=== PATIENT | male | born 1965 | race African-American/Black ===

== ENCOUNTER 2018-02-13 10:02 | Inpatient (IN) | payer OTHER ==
[2018-02-13 11:49] VITALS: BMI 27.4
--- NOTE | 2018-02-13 13:15 | HP ---
COWS - Scale Resting Pulse: 0= [place] 80 or Below Sweatin= Chills/Flushing Restless Observation: 0= Sits Still Pupil Size: 2= Moderately Dilated (pupils 5 mm) Bone or Joint Aches: 1= Mild Discomfort Runny Nose/ Eye Tearin= Nasal Congestion GI Upset > 30mins: 2= Nausea/Diarrhea Tremor Observation: 2= Slight Tremor Visible Yawning Observation: 0= None Anxiety or Irritability: 2=Irritable/Anxious Goose Flesh Skin: 0=Smooth Skin COWS Score: 11 CIWA Score - Admission Criteria OAS Guidelines: Admission for Medically Managed Detox: Requires at least one of the followin. CIWA greater than 12 2. Seizures within the past 24 hours 3. Delirium tremens within the past 24 hours 4. Hallucinations within the past 24 hours 5. Acute intervention needed for co occurring medical disorder 6. Acute intervention needed for co occurring psychiatric disorder 7. Severe withdrawal that cannot be handled at a lower level of care (continued vomiting, continued diarrhea, abnormal vital signs) requiring intravenous medication and/or fluids 8. Admission ROS [facility] Chief Complaint: C/o heroin withdrawal. Allergies/Adverse Reactions: Allergies Allergy/AdvReac Type Severity Reaction Status Date / Time No Known Drug Allergies Allergy Verified 02/13/18 12:50 History of Present Illness: Here for heroin detox. Heroin use since age 13. Uses intranasal. Nicotine use began at age 12. Denies alcohol or other substance use. Denies hx seizures, blackouts or overdoses. Denies mental health history. Unsure of day or month. Denies thoughts of harming self or others. Eyes w/ increased redness and discharge. Denies eye itching, pain or discomfort. States eyes were fine yesterday. Denies significant PMH/PSH. Patient Name: Jabier Casillas Date: 1965 Address: [address] [place] [address] Sex: Male Rx Written Rx Dispensed Drug Quantity Days Supply Prescriber Name 12/07/2017 12/08/2017 suboxone 8 mg-2 mg sl film 60 30 MD Tomeka, Brock 09/27/2017 09/28/2017 suboxone 8 mg-2 mg sl film 60 30 MD Tomeka, Brock 08/28/2017 08/28/2017 suboxone 8 mg-2 mg sl film 60 30 MD Eckert Mario 07/26/2017 07/26/2017 suboxone 8 mg-2 mg sl film 60 30 MD Eckert Mario 06/21/2017 06/25/2017 suboxone 8 mg-2 mg sl film 60 20 MD Eckert Mario 02/16/2017 02/17/2017 suboxone 8 mg-2 mg sl film 60 20 MD Eckert Mario Patient Name: Jabier Casillas Date: 1965 Address: [address] [facility] [place] [address] Sex: Male Rx Written Rx Dispensed Drug Quantity Days Supply Prescriber Name 06/13/2017 06/13/2017 suboxone 8 mg-2 mg sl film 42 14 ColantoAnabel elaineony 05/14/2017 05/17/2017 suboxone 8 mg-2 mg sl film 60 20 MD Eckert Mario Patient Name: Jabier Casillas Date: 1965 Address: [address] [place] [address] Sex: Male Rx Written Rx Dispensed Drug Quantity Days Supply Prescriber Name 03/08/2017 03/08/2017 suboxone 8 mg-2 mg sl film 60 20 MD Eckert Mario Exam Limitations: No Limitations - Ebola screening Have you traveled outside of the country in the last 21 days: No Have you had contact with anyone from an Ebola affected area: No Have you been sick,other than usual withdrawal symptoms: No - Review of Systems Constitutional: Chills, Diaphoresis EENT: reports: Tearing (States eyes feel fine. Noticed some tearing today.), Nose Congestion Respiratory: reports: No Symptoms reported Cardiac: reports: No Symptoms Reported GI: reports: Diarrhea (Since early this morning - states r/t withdrawal), Nausea : reports: No Symptoms Reported Musculoskeletal: reports: Back Pain (Started yesterday - states r/t withdrawal) Integumentary: reports: No Symptoms Reported Neuro: reports: Tremors Endocrine: reports: No Symptoms Reported Hematology: reports: No Symptoms Reported Psychiatric: reports: Agitated, Anxious (Denies thoughts of harming self or others.), Disorientated (Knows year but unable to provide day or month.) Patient History - PPD History Previous Implant?: Yes Documented Results: Negative w/o proof Implanted On Prior [facility] Admission?: No PPD to be Administered?: Yes - Smoking Cessation Smoking history: Current every day smoker Have you smoked in the past 12 months: Yes Aproximately how many cigarettes per day: 10 Hx Chewing Tobacco Use: No Initiated information on smoking cessation: Yes 'Breaking Loose' booklet given: 02/13/18 - Substance & Tx. History Hx Alcohol Use: No Hx Substance Use: Yes Substance Use Type: Heroin Hx Substance Use Treatment: Yes (detox) - Substances Abused Heroin Route: Inhalation Frequency: Daily Amount used: 8-12 bags Age of first use: 13 Date of Last Use: 02/12/18 Admission Physical Exam S - Vital Signs Vital Signs: Vital Signs - 24 hr 02/13/18 11:45 Temperature 97.6 F Pulse Rate 80 Respiratory 20 Rate Blood Pressure 121/75 - Physical General Appearance: Yes: Mild Distress, Tremorous, Irritable (Very irrtable), Anxious HEENTM: Yes: Hearing grossly Normal, JONATAN, Other (Sclera and cnjunctiva w/ increased erythema and whitish discharge) Respiratory: Yes: Lungs Clear, Normal Breath Sounds, No Respiratory Distress Neck: Yes: No masses,lesions,Nodules, Supple Breast: Yes: Breast Exam Deferred Cardiology: Yes: Regular Rhythm, Regular Rate, S1, S2 Abdominal: Yes: Non Tender, Soft, Increased Bowel Sounds Genitourinary: Yes: Within Normal Limits Back: Yes: Normal Inspection Musculoskeletal: Yes: full range of Motion, Gait Steady Extremities: Yes: Normal Capillary Refill, Normal Inspection, Normal Range of Motion, Tremors Neurological: Yes: machine tracer II-XII NML intact, Alert (Does not know month or year), Motor Strength 5/5, Normal Mood/Affect Integumentary: Yes: Normal Color, Dry, Warm Lymphatic: Yes: Within Normal Limits - Diagnostic (1) Opioid dependence with withdrawal Current Visit: Yes Status: Acute (2) Conjunctivitis Current Visit: Yes Status: Acute Qualifiers: Conjunctivitis type: acute Acute conjunctivitis type: unspecified Laterality: bilateral Qualified Code(s): H10.33 - Unspecified acute conjunctivitis, bilateral (3) Nicotine dependence Current Visit: Yes Status: Acute Qualifiers: Nicotine product type: cigarettes Substance use status: uncomplicated Qualified Code(s): F17.210 - Nicotine dependence, cigarettes, uncomplicated Cleared for Admission [facility] - Detox or Rehab [facility] Level of Care: Medically Supervised Detox Regimen/Protocol: Methadone [facility] Breath Alcohol Content Breath Alcohol Content: 0 Urine Drug Screen - Results Drug Screen Negative: No Urine Drug Screen Results: OPI-Opiates, BZO-Benzodiazepines, FEN-Fentanyl
[2018-02-13] MEDS ORDERED: MAGNESIUM CITRATE 300 ML BOTTLE PO PRN (13:52)
[2018-02-13] MEDS ORDERED: ACETAMINOPHEN 325 MG TABLET (FP) PO PRN (13:52)
[2018-02-13] MEDS ORDERED: MAG HYDROX/AL HYDROX/SIMETH 30 ML UNIT-DOSE CUP PO PRN (13:52)
[2018-02-13] MEDS ORDERED: MAGNESIUM HYDROX 2400MG/30ML ORAL SUSPENSION 30 ML CUP PO PRN (13:52)
[2018-02-13] MEDS ORDERED: IBUPROFEN 400 MG TABLET (FP) PO PRN (13:52)
[2018-02-13] MEDS ORDERED: MENTHOL/PHENOL 1 EACH UD MM PRN (13:52)
[2018-02-13] MEDS ORDERED: NICOTINE POLACRILEX 2 MG GUM BC PRN (13:52)
[2018-02-13] MEDS ORDERED: LOPERAMIDE HCL 2 MG CAPSULE PO PRN (13:52)
[2018-02-13] MEDS ORDERED: METHADONE HCL 10 MG TABLET (FOR DETOX USE ONLY) PO ONE ×2 (15:00→23:00)
[2018-02-13] MEDS: OFLOXACIN 0.3% OPHTHALMIC SOLUTION 5 ML BOTTLE OU SCH ×3 (15:27→23:18)
[2018-02-13 22:03] LABS: URINE APPEARANCE CLEAR; URINE BILIRUBIN NEGATIVE (<2.0 mg/dL); URINE COLOR LTYELLOW; URINE GLUCOSE (UA) NEGATIVE (NEGATIVE); URINE KETONE NEGATIVE (NEGATIVE); URINE LEUK ESTERASE NEGATIVE (NEGATIVE); URINE NITRITE NEGATIVE (NEGATIVE); URINE PROTEIN NEGATIVE (NEGATIVE); URINE UROBILINOGEN NEGATIVE mg/dL (0.2-1.0)
[2018-02-13] MEDS: THIAMINE HCL 100 MG TABLET (FP) PO SCH (23:18)
[2018-02-14] MEDS: OFLOXACIN 0.3% OPHTHALMIC SOLUTION 5 ML BOTTLE OU SCH ×5 (07:12→22:13)
[2018-02-14] MEDS ORDERED: METHADONE HCL 10 MG TABLET (FOR DETOX USE ONLY) PO ONE (10:00)
[2018-02-14 10:13] LABS: ALBUMIN 3.6 g/dl (3.4-5.0); ALK PHOS 109 U/L (45-117); ANION GAP 3 MMOL/L (8-16); BILIRUBIN,TOTAL 0.6 mg/dL (0.2-1); BLOOD UREA NITROGEN 13 mg/dL (7-18); CALCIUM 8.6 mg/dL (8.5-10.1); CHLORIDE 111 mmol/L (98-107); CO2 27 mmol/L (21-32); GLUCOSE,RANDOM 92 mg/dL (74-106); POTASSIUM 4.3 mmol/L (3.5-5.1); SGOT/AST 16 U/L (15-37); SGPT/ALT 23 U/L (13-61); SODIUM 141 mmol/L (136-145)
[2018-02-14 10:18] LABS: HEMATOCRIT 38.5 % (35.4-49); HEMOGLOBIN 12.2 GM/dL (11.7-16.9); MCH 26.8 pg (25.7-33.7); MCHC 31.7 g/dl (32.0-35.9); MEAN CELL VOLUME 84.6 fl (80-96); MEAN PLT VOLUME 9.7 fl (7.5-11.1); PLATELET COUNT 270 K/MM3 (134-434); RBC 4.55 M/mm3 (4.00-5.60); RDW 14.7 % (11.9-15.9)
[2018-02-14] MEDS: diazePAM 5 MG TABLET PO PRN (10:40)
[2018-02-14] MEDS: PRENATAL VITAMINS W/ FOLIC ACID TABLET (FP) PO SCH (10:41)
[2018-02-14] MEDS: NICOTINE 14 MG/24 HOURS TOPICAL PATCH TD SCH (10:46)
--- NOTE | 2018-02-14 12:06 | EKG ---
Test Reason : Blood Pressure : / mmHG Vent. Rate : 098 BPM Atrial Rate : 098 BPM P-R Int : 142 ms QRS Dur : 070 ms QT Int : 332 ms P-R-T Axes : 066 072 068 degrees QTc Int : 423 ms NORMAL SINUS RHYTHM POSSIBLE LEFT ATRIAL ENLARGEMENT BORDERLINE ECG NO PREVIOUS ECGS AVAILABLE Confirmed by CRYSTAL FALLON, AMARJIT ([id number]) on 02/14/2018 12:06:12 PM Referred By: Confirmed By:AMARJIT ROJAS MD
--- NOTE | 2018-02-14 14:59 | PN ---
S COWS - Scale Resting Pulse: 0= [place] 80 or Below Sweatin= No chills or Flushing Restless Observation: 1= Difficult to Sit Still Pupil Size: 2= Moderately Dilated Bone or Joint Aches: 1= Mild Discomfort Runny Nose/ Eye Tearin= None GI Upset > 30mins: 2= Nausea/Diarrhea Tremor Observation of Outstretched Hands: 2= Slight Tremor Visible Yawning Observation: 1= 1-2x During Session Anxiety or Irritability: 2=Irritable/Anxious Goose Flesh Skin: 0=Smooth Skin COWS Score: 11 [facility] Progress Note (SOAP) Subjective: PATIENT C/O ANXIETY, SHAKES, MILD RESTLESSNESS AND BODY ACHES. Objective: 02/14/18 14:55 Vital Signs Temperature 98.5 F 02/14/18 13:38 Pulse Rate 75 02/14/18 13:38 Respiratory Rate 18 02/14/18 13:38 Blood Pressure 112/63 02/14/18 13:38 O2 Sat by Pulse Oximetry (%) Laboratory Tests 02/13/18 02/14/18 02/14/18 18:58 05:45 05:45 WBC 8.0 RBC 4.55 Hgb 12.2 Hct 38.5 MCV 84.6 MCH 26.8 MCHC 31.7 L RDW 14.7 Plt Count 270 MPV 9.7 Sodium 141 Potassium 4.3 Chloride 111 H Carbon Dioxide 27 Anion Gap 3 L BUN 13 Creatinine 1.0 Creat Clearance w eGFR > 60 Random Glucose 92 Calcium 8.6 Total Bilirubin 0.6 AST 16 ALT 23 Alkaline Phosphatase 109 Total Protein 7.0 Albumin 3.6 Urine Color Ltyellow Urine Appearance Clear Urine pH 6.0 Ur Specific [place] 1.021 Urine Protein Negative Urine Glucose (UA) Negative Urine Ketones Negative Urine Blood Negative Urine Nitrite Negative Urine Bilirubin Negative Urine Urobilinogen Negative Ur Leukocyte Esterase Negative RPR Titer 02/14/18 05:45 WBC RBC Hgb Hct MCV MCH MCHC RDW Plt Count MPV Sodium Potassium Chloride Carbon Dioxide Anion Gap BUN Creatinine Creat Clearance w eGFR Random Glucose Calcium Total Bilirubin AST ALT Alkaline Phosphatase Total Protein Albumin Urine Color Urine Appearance Urine pH Ur Specific [place] Urine Protein Urine Glucose (UA) Urine Ketones Urine Blood Urine Nitrite Urine Bilirubin Urine Urobilinogen Ur Leukocyte Esterase RPR Titer Nonreactive PE: ALERT AND ORIENTED X 3 SKIN WARM, MILD FACIAL MOISTURE EYES PUPILS DILATED, +REDNESS TO CONJUNCTIVAE OU, NO EXUDATE EXT FULL ROM, AMB AD JIN, +TREMORS VISIBLE Assessment: 02/14/18 14:57 WITHDRAWAL SX Plan: CONTINUE DETOX ENCOURAGE ORAL FLUID OXAFLOCIN CONTINUED FOR CONJUNCTIVITIS MONITOR
[2018-02-14] MEDS: MELATONIN 5 MG TABLETS PO PRN (22:13)
[2018-02-14] MEDS: THIAMINE HCL 100 MG TABLET (FP) PO SCH (22:13)
[2018-02-15] MEDS: OFLOXACIN 0.3% OPHTHALMIC SOLUTION 5 ML BOTTLE OU SCH ×5 (07:06→22:27)
[2018-02-15] MEDS ORDERED: METHADONE HCL 5 MG TABLET (FOR DETOX USE ONLY) PO ONE (10:00)
[2018-02-15] MEDS: PRENATAL VITAMINS W/ FOLIC ACID TABLET (FP) PO SCH (10:24)
[2018-02-15] MEDS: NICOTINE 14 MG/24 HOURS TOPICAL PATCH TD SCH (10:24)
[2018-02-15] MEDS: diazePAM 5 MG TABLET PO PRN ×2 (10:24→22:29)
--- NOTE | 2018-02-15 13:39 | PN ---
[facility] COWS - Scale Resting Pulse: 0= [place] 80 or Below Restless Observation: 0= Sits Still Pupil Size: 0= Normal to Room Light Bone or Joint Aches: 0= None Runny Nose/ Eye Tearin= None GI Upset > 30mins: 0= None Tremor Observation of Outstretched Hands: 0= None Yawning Observation: 0= None Anxiety or Irritability: 0= None Goose Flesh Skin: 0=Smooth Skin [facility] Progress Note (SOAP) Subjective: pt states he is feeling fine- on detox protocol O: Vital Signs - 24 hr 02/14/18 02/14/18 02/14/18 13:38 17:51 21:31 Temperature 98.5 F 98.1 F 99 F Pulse Rate 75 80 99 H Respiratory 18 18 16 Rate Blood Pressure 112/63 100/62 133/78 02/15/18 02/15/18 02/15/18 00:30 03:22 06:29 Temperature 98.3 F Pulse Rate 82 Respiratory 18 18 18 Rate Blood Pressure 118/71 02/15/18 09:30 Temperature 98.4 F Pulse Rate 80 Respiratory 18 Rate Blood Pressure 117/72 Laboratory Tests 02/13/18 02/14/18 02/14/18 18:58 05:45 05:45 WBC 8.0 RBC 4.55 Hgb 12.2 Hct 38.5 MCV 84.6 MCH 26.8 MCHC 31.7 L RDW 14.7 Plt Count 270 MPV 9.7 Sodium 141 Potassium 4.3 Chloride 111 H Carbon Dioxide 27 Anion Gap 3 L BUN 13 Creatinine 1.0 Creat Clearance w eGFR > 60 Random Glucose 92 Calcium 8.6 Total Bilirubin 0.6 AST 16 ALT 23 Alkaline Phosphatase 109 Total Protein 7.0 Albumin 3.6 Urine Color Ltyellow Urine Appearance Clear Urine pH 6.0 Ur Specific [place] 1.021 Urine Protein Negative Urine Glucose (UA) Negative Urine Ketones Negative Urine Blood Negative Urine Nitrite Negative Urine Bilirubin Negative Urine Urobilinogen Negative Ur Leukocyte Esterase Negative RPR Titer 02/14/18 05:45 WBC RBC Hgb Hct MCV MCH MCHC RDW Plt Count MPV Sodium Potassium Chloride Carbon Dioxide Anion Gap BUN Creatinine Creat Clearance w eGFR Random Glucose Calcium Total Bilirubin AST ALT Alkaline Phosphatase Total Protein Albumin Urine Color Urine Appearance Urine pH Ur Specific [place] Urine Protein Urine Glucose (UA) Urine Ketones Urine Blood Urine Nitrite Urine Bilirubin Urine Urobilinogen Ur Leukocyte Esterase RPR Titer Nonreactive a/p: opiate use disorder- continue protocol, pt doing well
[2018-02-15] MEDS: THIAMINE HCL 100 MG TABLET (FP) PO SCH (22:27)
[2018-02-15] MEDS: MELATONIN 5 MG TABLETS PO PRN (22:27)
[2018-02-16] MEDS: OFLOXACIN 0.3% OPHTHALMIC SOLUTION 5 ML BOTTLE OU SCH ×5 (05:49→22:19)
[2018-02-16] MEDS ORDERED: METHADONE HCL 5 MG TABLET (FOR DETOX USE ONLY) PO ONE (10:00)
[2018-02-16] MEDS: NICOTINE 14 MG/24 HOURS TOPICAL PATCH TD SCH (11:32)
[2018-02-16] MEDS: PRENATAL VITAMINS W/ FOLIC ACID TABLET (FP) PO SCH (11:32)
--- NOTE | 2018-02-16 12:24 | PN ---
[facility] Progress Note (SOAP) Subjective: alert,irritable,anxious,interrupted sleep,pain in the body and back Objective: 02/16/18 12:24 Vital Signs Temperature 97.2 F L 02/16/18 09:25 Pulse Rate 76 02/16/18 09:25 Respiratory Rate 18 02/16/18 09:25 Blood Pressure 108/68 02/16/18 09:25 O2 Sat by Pulse Oximetry (%) Assessment: 02/16/18 12:24 withdrawal symptom Plan: continue detox
[2018-02-16] MEDS: THIAMINE HCL 100 MG TABLET (FP) PO SCH (22:18)
[2018-02-16] MEDS: MELATONIN 5 MG TABLETS PO PRN (22:18)
[2018-02-17] MEDS: OFLOXACIN 0.3% OPHTHALMIC SOLUTION 5 ML BOTTLE OU SCH ×5 (06:40→22:17)
[2018-02-17] MEDS ORDERED: METHADONE HCL 10 MG TABLET (FOR DETOX USE ONLY) PO ONE (10:00)
[2018-02-17] MEDS: NICOTINE 14 MG/24 HOURS TOPICAL PATCH TD SCH (10:24)
[2018-02-17] MEDS: PRENATAL VITAMINS W/ FOLIC ACID TABLET (FP) PO SCH (10:24)
--- NOTE | 2018-02-17 16:01 | PN ---
[facility] Progress Note (SOAP) Subjective: Interrupted sleep Objective: 02/17/18 16:00 Last Vital Signs Temp Pulse Resp BP Pulse Ox 97.0 F L 88 18 119/75 02/17/18 13:45 02/17/18 13:45 02/17/18 13:45 02/17/18 13:45 Laboratory Tests 02/13/18 02/14/18 02/14/18 18:58 05:45 05:45 WBC 8.0 RBC 4.55 Hgb 12.2 Hct 38.5 MCV 84.6 MCH 26.8 MCHC 31.7 L RDW 14.7 Plt Count 270 MPV 9.7 Sodium 141 Potassium 4.3 Chloride 111 H Carbon Dioxide 27 Anion Gap 3 L BUN 13 Creatinine 1.0 Creat Clearance w eGFR > 60 Random Glucose 92 Calcium 8.6 Total Bilirubin 0.6 AST 16 ALT 23 Alkaline Phosphatase 109 Total Protein 7.0 Albumin 3.6 Urine Color Ltyellow Urine Appearance Clear Urine pH 6.0 Ur Specific [place] 1.021 Urine Protein Negative Urine Glucose (UA) Negative Urine Ketones Negative Urine Blood Negative Urine Nitrite Negative Urine Bilirubin Negative Urine Urobilinogen Negative Ur Leukocyte Esterase Negative RPR Titer 02/14/18 05:45 WBC RBC Hgb Hct MCV MCH MCHC RDW Plt Count MPV Sodium Potassium Chloride Carbon Dioxide Anion Gap BUN Creatinine Creat Clearance w eGFR Random Glucose Calcium Total Bilirubin AST ALT Alkaline Phosphatase Total Protein Albumin Urine Color Urine Appearance Urine pH Ur Specific [place] Urine Protein Urine Glucose (UA) Urine Ketones Urine Blood Urine Nitrite Urine Bilirubin Urine Urobilinogen Ur Leukocyte Esterase RPR Titer Nonreactive Labs reviewed Assessment: 02/17/18 16:01 Withdrawal symptoms Plan: Continue detox Encouraged PO water intake
[2018-02-17] MEDS: MELATONIN 5 MG TABLETS PO PRN (22:24)
[2018-02-17] MEDS: THIAMINE HCL 100 MG TABLET (FP) PO SCH (22:24)
[2018-02-18] MEDS: OFLOXACIN 0.3% OPHTHALMIC SOLUTION 5 ML BOTTLE OU SCH ×2 (05:50→10:39)
[2018-02-18] MEDS ORDERED: METHADONE HCL 5 MG TABLET (FOR DETOX USE ONLY) PO ONE (06:00)
[2018-02-18] MEDS: PRENATAL VITAMINS W/ FOLIC ACID TABLET (FP) PO SCH (10:39)
[2018-02-18] MEDS: NICOTINE 14 MG/24 HOURS TOPICAL PATCH TD SCH (10:39)
[2018-02-18 13:11] VITALS: BP 106/68; PULSE 82; TEMP 96.4
--- NOTE | 2018-02-18 15:49 | PN ---
[facility] Progress Note (SOAP) Subjective: offers no new complaints Objective: 02/18/18 15:47 in no acute distress Vital Signs Temperature 96.4 F L 02/18/18 13:11 Pulse Rate 82 02/18/18 13:11 Respiratory Rate 18 02/18/18 13:11 Blood Pressure 106/68 02/18/18 13:11 O2 Sat by Pulse Oximetry (%) Assessment: 02/18/18 15:48 detox completed Plan: for discharge
--- NOTE | 2018-02-18 15:51 | DS ---
[facility] Detox Discharge Summary Admission Date: 02/13/18 Discharge Date: 02/18/18 - History Additional Comments: for discharge Pertinent Past History: denies - Physical Exam Results Vital Signs: Vital Signs Temperature 96.4 F L 02/18/18 13:11 Pulse Rate 82 02/18/18 13:11 Respiratory Rate 18 02/18/18 13:11 Blood Pressure 106/68 02/18/18 13:11 O2 Sat by Pulse Oximetry (%) Pertinent Admission Physical Exam Findings: withdrawal sx - Treatment Hospital Course: Detox Protocol Followed, Detoxed Safely, Responded well, Discharged Condition Good, Rehab Referral Accepted Patient has Accepted a Rehab Referral to: [facility] - Medication Discharge Medications: Ambulatory Orders NK [No Known Home Medication] 02/13/18 - Diagnosis (1) Substance induced mood disorder Status: Acute (2) Substance-induced sleep disorder Status: Acute (3) Schizophrenia Status: Chronic (4) Conjunctivitis Status: Acute Qualifiers: Conjunctivitis type: acute Acute conjunctivitis type: unspecified Laterality: bilateral Qualified Code(s): H10.33 - Unspecified acute conjunctivitis, bilateral (5) Opioid dependence with withdrawal Status: Acute - AMA Did Patient Leave Against Medical Advice: No
== END 2018-02-18 14:17 | disposition other institution (70) | DRG 773 ==
LOC: YASAS 10:02 → Y3N 14:26
PROC: HZ2ZZZZ Detoxification Services for Substance Abuse Treatment (ICD-10-PCS; principal; 2018-02-13)
DX: F11.23 Opioid dependence with withdrawal (principal); F17.210 Nicotine dependence, cigarettes, uncomplicated; F19.24 Other psychoactive substance dependence with psychoactive substance-induced mood disorder; F19.282 Other psychoactive substance dependence with psychoactive substance-induced sleep disorder; F20.9 Schizophrenia, unspecified; H10.33 Unspecified acute conjunctivitis, bilateral
CPT/HCPCS: 36415; 80053; 81003; 85027; 86593; 93005; 93010

== ENCOUNTER 2018-02-18 14:14 | Inpatient (IN) | payer OTHER ==
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
--- NOTE | 2018-02-18 16:04 | HP ---
[facility] Rehab Assess/Revision - Admission History Admitted to Rehab from: [facility] [place] Date of Admission to Rehab: 02/18/2018 - Vital signs Vital Signs: Vital Signs Period Temp Pulse Resp BP Sys/Hall Pulse Ox Last 24 Hr 98.3 F 93 18 110/73 - Findings Detox History & Physical reviewed: Yes Concur with findings: Yes Inpatient Rehab Admission - Initial Determination Are CD services needed?: Yes Free of communicable disease: Yes Not in need of hospitalization: Yes - Rehab Admission Criteria Previous failed treatment: Yes Poor recovery environment: Yes Comorbidities: Yes Lacks judgement: Yes Patient is meeting Inpatient Rehab admission criteria:: Yes
[2018-02-18] MEDS ORDERED: P-EPHED 60MG/TRIPROLIDI 2.5MG TABLET PO PRN (16:07)
[2018-02-18] MEDS ORDERED: guaiFENesin/D-METHORPHAN HB 10 ML UNIT-DOSE CUPS PO PRN (16:07)
[2018-02-18] MEDS ORDERED: NICOTINE POLACRILEX 2 MG GUM BUC PRN (16:07)
[2018-02-18] MEDS ORDERED: ACETAMINOPHEN 325 MG TABLET (FP) PO PRN (16:07)
[2018-02-18] MEDS ORDERED: LOPERAMIDE HCL 2 MG CAPSULE PO PRN (16:07)
[2018-02-18] MEDS ORDERED: MAG HYDROX/AL HYDROX/SIMETH 30 ML UNIT-DOSE CUP PO PRN (16:07)
[2018-02-18] MEDS ORDERED: hydrOXYzine PAMOATE 50 MG CAPSULE (FP) PO PRN (16:07)
[2018-02-18] MEDS ORDERED: IBUPROFEN 400 MG TABLET (FP) PO PRN (16:07)
[2018-02-18] MEDS ORDERED: MAGNESIUM CITRATE 300 ML BOTTLE PO PRN (16:07)
[2018-02-18] MEDS ORDERED: MAGNESIUM HYDROX 2400MG/30ML ORAL SUSPENSION 30 ML CUP PO PRN (16:07)
[2018-02-18] MEDS ORDERED: MENTHOL/PHENOL 1 EACH UD MM PRN (16:07)
[2018-02-18] MEDS: MELATONIN 5 MG TABLETS PO PRN (21:32)
[2018-02-18] MEDS: THIAMINE HCL 100 MG TABLET (FP) PO SCH (21:32)
[2018-02-19] MEDS: NICOTINE 14 MG/24 HOURS TOPICAL PATCH TD SCH (10:27)
[2018-02-19] MEDS: PRENATAL VITAMINS W/ FOLIC ACID TABLET (FP) PO SCH (10:27)
[2018-02-19] MEDS: THIAMINE HCL 100 MG TABLET (FP) PO SCH (21:41)
[2018-02-20] MEDS: PRENATAL VITAMINS W/ FOLIC ACID TABLET (FP) PO SCH (10:52)
[2018-02-20] MEDS: NICOTINE 14 MG/24 HOURS TOPICAL PATCH TD SCH (10:52)
[2018-02-20] MEDS: QUEtiapine FUMARATE 100 MG TABLET (FP) PO SCH (21:43)
[2018-02-20] MEDS: THIAMINE HCL 100 MG TABLET (FP) PO SCH (21:43)
[2018-02-21] MEDS: PRENATAL VITAMINS W/ FOLIC ACID TABLET (FP) PO SCH (10:48)
[2018-02-21] MEDS: NICOTINE 14 MG/24 HOURS TOPICAL PATCH TD SCH (10:48)
[2018-02-21] MEDS ORDERED: ONDANSETRON *ODT* 4 MG TABLET SL PRN (11:12)
--- NOTE | 2018-02-21 11:14 | PN ---
[facility] Progress Note (SOAP) Subjective: C/o nausea and abd cramps. States "I'm feeling withdrawal symptoms." Objective: A&Ox3. Lungs CTA. Abd S/NT/BS+ (+) rhinorrhea Pupils = 6 mm Vital Signs - 24 hr 02/21/18 02/21/18 02/21/18 00:30 03:30 06:49 Temperature 97.6 F Pulse Rate 94 H Respiratory 18 18 16 Rate Blood Pressure 129/76 Assessment: Early opiate remission w/ protracted withdrawal symptoms Plan: Continue rehab Zofran prn for nausea CloNidine 0.1 mg Po now and BID x 3 days. Hold for SBP < 120.
[2018-02-21] MEDS: cloNIDine HCL 0.1 MG TABLET PO SCH ×2 (12:00→21:37)
[2018-02-21] MEDS: QUEtiapine FUMARATE 100 MG TABLET (FP) PO SCH (21:32)
[2018-02-21] MEDS: MELATONIN 5 MG TABLETS PO PRN (21:32)
[2018-02-21] MEDS: THIAMINE HCL 100 MG TABLET (FP) PO SCH (21:32)
[2018-02-22] MEDS: PRENATAL VITAMINS W/ FOLIC ACID TABLET (FP) PO SCH (10:26)
[2018-02-22] MEDS: cloNIDine HCL 0.1 MG TABLET PO SCH ×2 (10:26→21:37)
[2018-02-22] MEDS: NICOTINE 14 MG/24 HOURS TOPICAL PATCH TD SCH (10:26)
[2018-02-22] MEDS: THIAMINE HCL 100 MG TABLET (FP) PO SCH (21:36)
[2018-02-22] MEDS: QUEtiapine FUMARATE 100 MG TABLET (FP) PO SCH (21:36)
[2018-02-23] MEDS: PRENATAL VITAMINS W/ FOLIC ACID TABLET (FP) PO SCH (10:10)
[2018-02-23] MEDS: NICOTINE 14 MG/24 HOURS TOPICAL PATCH TD SCH (10:10)
[2018-02-23] MEDS: cloNIDine HCL 0.1 MG TABLET PO SCH ×2 (10:10→21:45)
[2018-02-23] MEDS: QUEtiapine FUMARATE 100 MG TABLET (FP) PO SCH (21:45)
[2018-02-23] MEDS: THIAMINE HCL 100 MG TABLET (FP) PO SCH (21:45)
[2018-02-24] MEDS: cloNIDine HCL 0.1 MG TABLET PO SCH (10:17)
[2018-02-24] MEDS: PRENATAL VITAMINS W/ FOLIC ACID TABLET (FP) PO SCH (10:18)
[2018-02-24] MEDS: NICOTINE 14 MG/24 HOURS TOPICAL PATCH TD SCH (10:18)
[2018-02-24] MEDS: QUEtiapine FUMARATE 100 MG TABLET (FP) PO SCH (21:39)
[2018-02-24] MEDS: THIAMINE HCL 100 MG TABLET (FP) PO SCH (21:40)
[2018-02-25] MEDS: NICOTINE 14 MG/24 HOURS TOPICAL PATCH TD SCH (10:54)
[2018-02-25] MEDS: PRENATAL VITAMINS W/ FOLIC ACID TABLET (FP) PO SCH (10:54)
[2018-02-25] MEDS: THIAMINE HCL 100 MG TABLET (FP) PO SCH (21:41)
[2018-02-25] MEDS: QUEtiapine FUMARATE 100 MG TABLET (FP) PO SCH (21:41)
[2018-02-26] MEDS: PRENATAL VITAMINS W/ FOLIC ACID TABLET (FP) PO SCH (10:27)
[2018-02-26] MEDS: NICOTINE 14 MG/24 HOURS TOPICAL PATCH TD SCH (10:27)
[2018-02-26] MEDS: QUEtiapine FUMARATE 100 MG TABLET (FP) PO SCH (21:43)
[2018-02-26] MEDS: THIAMINE HCL 100 MG TABLET (FP) PO SCH (21:43)
[2018-02-27] MEDS: NICOTINE 14 MG/24 HOURS TOPICAL PATCH TD SCH (10:20)
[2018-02-27] MEDS: PRENATAL VITAMINS W/ FOLIC ACID TABLET (FP) PO SCH (10:20)
[2018-02-27] MEDS: THIAMINE HCL 100 MG TABLET (FP) PO SCH (21:40)
[2018-02-27] MEDS: QUEtiapine FUMARATE 100 MG TABLET (FP) PO SCH (21:40)
[2018-02-28] MEDS: NICOTINE 14 MG/24 HOURS TOPICAL PATCH TD SCH (10:51)
[2018-02-28] MEDS: PRENATAL VITAMINS W/ FOLIC ACID TABLET (FP) PO SCH (10:52)
[2018-02-28] MEDS: QUEtiapine FUMARATE 100 MG TABLET (FP) PO SCH (21:38)
[2018-02-28] MEDS: THIAMINE HCL 100 MG TABLET (FP) PO SCH (21:38)
[2018-03-01] MEDS: PRENATAL VITAMINS W/ FOLIC ACID TABLET (FP) PO SCH (10:36)
[2018-03-01] MEDS: NICOTINE 14 MG/24 HOURS TOPICAL PATCH TD SCH (10:36)
[2018-03-01] MEDS: THIAMINE HCL 100 MG TABLET (FP) PO SCH (21:43)
[2018-03-01] MEDS: QUEtiapine FUMARATE 100 MG TABLET (FP) PO SCH (21:43)
[2018-03-02] MEDS: PRENATAL VITAMINS W/ FOLIC ACID TABLET (FP) PO SCH (10:28)
[2018-03-02] MEDS: NICOTINE 14 MG/24 HOURS TOPICAL PATCH TD SCH (10:28)
[2018-03-02] MEDS: THIAMINE HCL 100 MG TABLET (FP) PO SCH (21:43)
[2018-03-02] MEDS: QUEtiapine FUMARATE 100 MG TABLET (FP) PO SCH (21:43)
[2018-03-03] MEDS: PRENATAL VITAMINS W/ FOLIC ACID TABLET (FP) PO SCH (11:41)
[2018-03-03] MEDS: NICOTINE 14 MG/24 HOURS TOPICAL PATCH TD SCH (11:41)
[2018-03-03] MEDS: THIAMINE HCL 100 MG TABLET (FP) PO SCH (21:53)
[2018-03-03] MEDS: QUEtiapine FUMARATE 100 MG TABLET (FP) PO SCH (21:54)
[2018-03-04 07:19] VITALS: BP 133/86; PULSE 88; TEMP 98.6
--- NOTE | 2018-03-04 09:48 | PN ---
[facility] Progress Note Note: Patient has completed this program today. He is discharged and referred to [facility] at [address] [place] [address] for residential residential treatment. Script for 30 day supply of Seroquel 100 mg po HS electronically transmitted to [facility] at [address] [place] [address]
[2018-03-04] MEDS: NICOTINE 14 MG/24 HOURS TOPICAL PATCH TD SCH (10:07)
[2018-03-04] MEDS: PRENATAL VITAMINS W/ FOLIC ACID TABLET (FP) PO SCH (10:07)
== END 2018-03-04 10:15 | disposition home or self-care (01) | DRG 772 ==
LOC: YASAS 14:14 → Y5N 14:15
PROVIDERS: ADMIT Psychiatry & Neurology Psychiatry; ATTEND Psychiatry & Neurology Psychiatry
PROC: HZ42ZZZ Group Counseling for Substance Abuse Treatment, Cognitive-Behavioral (ICD-10-PCS; principal; 2018-02-18)
DX: F11.20 Opioid dependence, uncomplicated (principal); F17.213 Nicotine dependence, cigarettes, with withdrawal; F19.24 Other psychoactive substance dependence with psychoactive substance-induced mood disorder; F19.282 Other psychoactive substance dependence with psychoactive substance-induced sleep disorder; F20.9 Schizophrenia, unspecified
CPT/HCPCS: J0735; Q0162